=== PATIENT | female | born 1995 | race Two or more races ===

== ENCOUNTER 2025-02-23 19:27 | Emergency (ER) | payer MEDICAID, OTHER ==
[~2025-02-23] VITALS: Ht 152.4 cm; Wt 86.6 kg
[2025-02-23 19:30] VITALS: TEMP 97.8
--- NOTE | 2025-02-23 20:14 | DVH ---
INDICATION: Lumbar radiculopathy TECHNIQUE: 2. views of the lumbar spine were obtained. COMPARISON: None FINDINGS: No evidence of vertebral fracture or compression deformity. Normal lordotic curvature without listhe sis. No significant spondylotic change. The imaged pelvis and abdominal contents are unremarkable. IMPRESSION: 1. No acute osseous finding of the lumbar spine.
[2025-02-23] MEDS ORDERED: IBUP-1455 PO (20:44)
[2025-02-23] MEDS ORDERED: HYDR-4902 PO (20:44)
--- NOTE | 2025-02-23 20:45 | ED.PDOC ---
History of Present Illness HPI Comments This patient is a 29-year-old female who arrives to the ED today for evaluation of pain that migrates from her right-sided back through her gluteal region and down her leg for the past several weeks. Patient states she has a six-month history of what she was told was sciatic pain. Patient has not followed up with the primary care provider nor has she had imaging studies performed. Patient denies any fever nausea or vomiting. Patient denies any recent trauma related to her complaints. Vital signs were stable at arrival. Chief Complaint: Lower Extremity Time Seen by MD: 19:30 Allergies: Coded Allergies: No Known Drug Allergy (Verified Allergy, Unknown, 02/23/25) Information Source: Patient, Friend Mode of Arrival: Ambulatory Severity: Moderate Timing: Months Duration: Since onset Prehospital treatment: Pain Meds Past Medical History PAST MEDICAL HISTORY: Denies Past Medical History (Other): History of right-sided sciatica Surgical History: Denies all surgeries DRUG SAFETY DATA MANAGEMENT SPECIALIST History: No Pertinent DRUG SAFETY DATA MANAGEMENT SPECIALIST History Family History Family History: Reviewed,noncontributory to illness, No family hx of Cancer, No family hx of DM, No family hx of Heart ava, No family hx of HTN, No family hx ofKidney ava, No family hx of Liver ava, No family hx of Lung ava, No family hx of Stroke Social History Smoker: Non-Smoker Alcohol: Denies ETOH Use Drugs: Denies Drug Use Lives In: Home Constitutional: denies: chills, diaphoresis, fatigue, fever, malaise, sweats, weakness, others EENTM: denies: blurred vision, double vision, ear bleeding, ear discharge, ear drainage, ear pain, ear ringing, eye pain, eye redness, hearing loss, mouth pain, mouth swelling, nasal discharge, nose bleeding, nose congestion, nose pain, photophobia, tearing, throat pain, throat swelling, voice changes, others Respiratory: denies: cough, hemoptysis, orthopnea, SOB at rest, shortness of breath, SOB with excertion, stridor, wheezing, others Cardiovascular: denies: chest pain, dizzy spells, diaphoresis, Dyspnea on exertion, edema, irregular heart beat, left arm pain, lightheadedness, palpitations, PND, syncope, others Gastrointestinal: denies: abdomen distended, abdominal pain, blood streaked bowels, constipated, diarrhea, dysphagia, difficulty swallowing, hematemesis, melena, nausea, poor appetite, poor fluid intake, rectal bleeding, rectal pain, vomiting, others Genitourinary: denies: abnormal vagina bleeding, burning, dyspareunia, dysuria, flank pain, frequency, hematuria, incontinence, pain, , vagina discharge, urgency, others Neurological: denies: dizziness, fainting, headache, left sided numbness, left sided weakness, numbness, paresthesia, pre-existing deficit, right sided numbness, right sided weakness, seizure, speech problems, tingling, tremors, weakness, others Musculoskeletal: reports: others (Right-sided low back pain radiating down the posterior right leg); denies: back pain, gout, joint pain, joint swelling, muscle pain, muscle stiffness, neck pain Integumetry: denies: bruises, change in color, change in hair/nails, dryness, laceration, lesions, lumps, rash, wounds, others Allergic/Immunocompromised: denies: Difficulty Healing, Frequent Infections, Hives, Itching, others Hematologic/Lymphatic: denies: anemia, blood clots, easy bleeding, easy bruising, swollen glands, others Endocrine: denies: excessive hunger, excessive sweating, excessive thirst, excessive urination, flushing, intolerance to cold, intolerance to heat, unexplained weight gain, unexplained weight loss, others Psychiatric: denies: anxiety, bipolar disorder, depression, hopeless, panic disorder, schizophrenia, sleepless, suicidal, others Physical Exam General Appearance: Moderate Distress (Moderate distress due to lower back and right leg pain concerns.), Normal HEENT: Normal ENT Inspection, Pharynx Normal, TMs Normal Neck: Full Range of Motion, Non-Tender, Normal, Normal Inspection Respiratory: Chest Non-Tender, Lungs Clear, No Accessory Muscle Use, No Respiratory Distress, Normal Breath Sounds Cardiovascular: No Edema, No JVD, No Murmur, No Gallop, Normal Peripheral Pulses, Regular Rate/Rhythm Breast Exam: Deferred Gastrointestinal: No Organomegaly, Non Tender, No Pulsatile Mass, Normal Bowel Sounds, Soft Genitalia: Deferred Pelvic: Deferred Rectal: Deferred Extremities: Other (Patient complains of right-sided lower back pain radiating down the lateral aspect of the right glute, right thigh and into the posterior calf. No signs of trauma. No edema or ecchymosis. Patient denies any saddle paresthesia. Distal neurovascular intact.) Neurologic: Alert, No Motor Deficits, Normal Affect, Normal Mood, No Sensory Deficits Cerebellar Function: NOT DONE Reflexes: NOT DONE Skin: Dry, Normal Color, Warm Lymphatic: No Adenopathy Was a procedure done? Was a procedure done?: No Differential Dx Considerations may include: Lumbar radiculopathy, degenerative disc disease of the lumbar spine, sciatica X-Ray, Labs, Meds, VS Vital Signs Date Time Temp Pulse Resp B/P (MAP) Pulse Ox O2 Delivery O2 Flow Rate FiO2 02/23/25 19:30 97.8 94 18 100/50 97 97.8 X-Ray, Labs, Meds, VS Comment All studies performed the ED were evaluated by me personally. X-rays of the lumbar spine were relatively unremarkable for any acute concern. No degenerative disc disease noted. Patient presents with what appears to be sciatic pain, but patient may require an MRI evaluation for complete assessment. Patient should follow up with the primary care provider. Time of 1ST Reevaluation: 20:42 Reevaluation 1ST: Improved Consultation: PCP Patient Education/Counseling: Diagnosis, Treatment Family Education/Counseling: Diagnosis, Treatment SEPSIS Sepsis Screen Date sepsis recognized/suspect: Feb 23, 2025 Time Sepsis recognized/suspect: 1929 Recent Procedure: No On Antibiotic Therapy: No Respiratory Rate >20: No Heart Rate >90: No Temp<36 C (96.8 F) or >38.3 C: No SBP <90 or MAP <65 mmHG: No New Acute Mental Status Change: No Is the patient on CPAP, BIPAP,: No Physician Orders Lumbar Spine 3 View (02/23/25 19:46) Vital Signs Date Time Temp Pulse Resp B/P (MAP) Pulse Ox O2 Delivery O2 Flow Rate FiO2 02/23/25 19:30 97.8 94 18 100/50 97 97.8 Departure 1 Departure Time of Disposition: 20:42 Impression: Primary Impression: Lumbar radiculopathy Disposition: HOME / SELF CARE / HOMELESS Condition: Stable Additional Instructions: Advised patient utilize pain medication as needed for symptomatic relief as well as ice therapy. Patient should follow up with primary care provider for continued evaluation as the patient may required MRI assessment of her low back pain concerns. e-Prescriptions Hydrocodone-Acetaminophen (Hydrocodone Bitartrate/AC 5-325 mg) 1 Tab Tab 1 TAB PO Q6HP PRN, #20 TAB Prov: MARIBELL LARA PAC 02/23/25 Ibuprofen Micronized (Ibuprofen) 800 Mg Tab 800 MG PO Q8HP PRN, #20 TAB Prov: MARIBELL LARA PAC 02/23/25 Discharged With: Self, Relative Critical Care Note Critical Care Time?: No Stability Stability form required: No Heart Score Heart Score: Heart Score Response (Comments) Value History N/A 0 EKG N/A 0 Age N/A 0 Risk Factors N/A 0 Troponin N/A 0 Total 0 MARIBELL LARA PAC Feb 23, 2025 20:45
[2025-02-23 21:00] VITALS: BP 110/65; PULSE 92; RESP 16; O2SAT 98
[2025-02-23] MEDS: HYDROcodone-ACET 5/325MG TAB PO ONE (21:03)
[2025-02-23] MEDS: KETOROLAC TROMETH 60MG/2ML VIAL IM ONE (21:04)
== END 2025-02-23 23:08 | disposition home or self-care (01) ==
LOC: ER 19:27
DX: M54.16 Radiculopathy, lumbar region (principal)
CPT/HCPCS: 72100; 96372; 99283; J1885